=== PATIENT | female | born 1980 | race Two or more races ===

== ENCOUNTER → 2021-03-11 | Day surgery (SDC) | payer OTHER | END | disposition home or self-care (01) | LOC: ADM 03-06 15:30 → AMB-ENDOS 12:31 | PROVIDERS: ATTEND Surgery | DX: K62.89 Other specified diseases of anus and rectum (principal); Z20.822 Contact with and (suspected) exposure to COVID-19 ==

== ENCOUNTER 2021-11-26 07:00 | Inpatient (IN) | payer OTHER ==
[~2021-11-26] VITALS: Ht 160 cm; Wt 68.9 kg
== END 2021-12-03 13:05 | disposition home or self-care (01) | DRG 734 ==
LOC: O/R 11-27 05:58 → SURH 11-27 07:00 → OB/GYN 11-27 13:35
PROVIDERS: Surgery; ADMIT Obstetrics & Gynecology Gynecologic Oncology; ATTEND Obstetrics & Gynecology Gynecologic Oncology
PROC: 0UT50ZZ Resection of Right Fallopian Tube, Open Approach (ICD-10-PCS; 2021-11-27)
PROC: 0UT00ZZ Resection of Right Ovary, Open Approach (ICD-10-PCS; 2021-11-27)
PROC: 0TN70ZZ Release Left Ureter, Open Approach (ICD-10-PCS; 2021-11-27)
PROC: 0TN60ZZ Release Right Ureter, Open Approach (ICD-10-PCS; 2021-11-27)
PROC: 0DQN0ZZ Repair Sigmoid Colon, Open Approach (ICD-10-PCS; 2021-11-27)
PROC: 0DNW0ZZ Release Peritoneum, Open Approach (ICD-10-PCS; 2021-11-27)
PROC: 0DBU0ZZ Excision of Omentum, Open Approach (ICD-10-PCS; 2021-11-27)
PROC: 0DT80ZZ Resection of Small Intestine, Open Approach (ICD-10-PCS; 2021-11-27)
PROC: 0DQ80ZZ Repair Small Intestine, Open Approach (ICD-10-PCS; 2021-11-27)
PROC: 0DJD8ZZ Inspection of Lower Intestinal Tract, Via Natural or Artificial Opening Endoscopic (ICD-10-PCS; 2021-11-27)
PROC: 07TC0ZZ Resection of Pelvis Lymphatic, Open Approach (ICD-10-PCS; principal; 2021-11-27 07:00)
PROC: 0UT90ZZ Resection of Uterus, Open Approach (ICD-10-PCS; 2021-11-27 07:00)
DX: N84.0 Polyp of corpus uteri (principal); K91.71 Accidental puncture and laceration of a digestive system organ or structure during a digestive system procedure; K56.51 Intestinal adhesions [bands], with partial obstruction; N72 Inflammatory disease of cervix uteri; Z20.822 Contact with and (suspected) exposure to COVID-19